=== PATIENT | male | born 1995 | race Caucasian/White ===

== ENCOUNTER 2021-06-13 16:21 | Emergency (ER) | payer BC, SELFPAY ==
[2021-06-13 16:31] VITALS: BP 152/88; PULSE 78; RESP 18; TEMP 36.7; O2SAT 98
--- NOTE | 2021-06-13 16:36 | ED.EAR ---
HPI - Ear Problem General Chief complaint: Ear Stated complaint: ear infection Time Seen by Provider: 06/13/21 16:37 Source: patient Mode of arrival: ambulatory Limitations: no limitations History of Present Illness HPI Narrative: 25-year-old male presented for complaint of rightl ear pain for 6 days. Describes pressure sensation with occasional ringing and decreased hearing. Endorses left ear starting to hurt. Has had intermittent nasal congestion x3 weeks. Denies bleeding/drainage, dizziness, nausea, vomiting, fever or chills. Using otc benadryl, ear oil and peroxide without relief. MD Complaint: ear pain Related Data Allergies Allergy/AdvReac Type Severity Reaction Status Date / Time No Known Allergies Allergy Verified 06/13/21 16:29 Review of Systems Review of Systems: CONSTITUTIONAL: Denies malaise, chills, or fever. EYES: Denies visual changes, redness, or discharge. ENT: Denies sinus pain, sore throat. Reports ear pain CARDIOVASCULAR: Denies chest pain, palpitations, or edema. RESPIRATORY: Denies cough or dyspnea. GASTROINTESTINAL: Denies abdominal pain, nausea, vomiting, diarrhea SKIN: Denies rash or itching. MUSCULOSKELETAL: Denies myalgia. NEUROLOGIC: Denies headache. All systems reviewed & are unremarkable except as noted in HPI and below PMFSH Family History Family History Mother Hypertension Grandparent Family history of heart disease in male family member before age 55 Social History Social History Smoking status: Never smoker Comments At time of signature, agree with nursing past medical, surgical, social and family history. There is no relevant family history pertinent to the presenting complaint Exam Narrative: GENERAL: Well-appearing HEAD: Normocephalic EYES: PERRLA, conjunctivae clear ENT: Nares clear. Mucous membranes moist. Bilateral canals erythematous, TMs dull bilaterally without drainage; no tragal tenderness. Oropharynx not erythematous without lesions. Tonsils not enlarged and without exudate, no drooling, no hoarseness, no trismus, uvula midline. NECK: Supple. No lymphadenopathy CHEST: Clear to auscultation, breath sounds equal. No wheezing, rhonchi, rales, or stridor. No respiratory distress, speaks in full sentences. HEART: Regular rate and rhythm. No murmur heard. SKIN: Warm, dry, no rash. NEURO: Alert and oriented x3. PSYCH: Normal mood and affect Course Course Emergency Course: Patient is aware of diagnosis, understands and agrees to treatment plan. Anticipatory guidance given. Patient agrees to follow-up as directed and is aware of reasons to seek care at the emergency department. Portions of this record may have been created with voice recognition software Level of Care: Express Care Visit Vital Signs Vital signs: Vital Signs Temperature 98.1 F 06/13/21 16:31 Pulse Rate 78 06/13/21 16:31 Respiratory Rate 18 06/13/21 16:31 Blood Pressure 152/88 H 06/13/21 16:31 Pulse Oximetry 98 06/13/21 16:31 Temperature 98.1 F 06/13/21 16:31 Pulse Rate 78 06/13/21 16:31 Respiratory Rate 18 06/13/21 16:31 Blood Pressure 152/88 H 06/13/21 16:31 Pulse Oximetry 98 06/13/21 16:31 Reviewed Medical Decision Making MDM Narrative Medical decision making narrative: patient is non-toxic appearing and is in no distress. Patient is appropriate for outpatient treatment and follow-up. Differential Diagnosis Differential Diagnosis: Coronavirus, strep pharyngitis, allergic rhinitis, upper respiratory tract infection, sinusitis, rhinosinusitis, nasopharyngitis, viral pharyngitis, otitis media, otitis externa, eustachian tube dysfunction, foreign body, cerumen impaction. Vital Signs Vital Signs: Vital Signs Temperature 98.1 F 06/13/21 16:31 Pulse Rate 78 06/13/21 16:31 Respiratory Rate 18 06/13/21 16:31 Blood Pressure 152/88 H
== END 2021-06-13 16:47 | disposition home or self-care (01) ==
PROVIDERS: Emergency Provider Nurse Practitioner Family
DX: H66.003 Acute suppurative otitis media without spontaneous rupture of ear drum, bilateral (principal)
CPT/HCPCS: 99213; G0463